=== PATIENT | male | born 1980 | race Caucasian/White ===

== ENCOUNTER 2017-07-02 07:10 | Emergency (ER) | payer OTHER, SELFPAY ==
--- NOTE | 2017-07-02 07:49 | RAD ---
THREE VIEWS OF THE LEFT ANKLE: INDICATION: Left ankle pain with walking, twisted while doing yardwork. COMPARISON: None. FINDINGS: There is prominent enthesopathic change off the plantar calcaneus as well as the anterior superior as pect of the talar head. There are mild degenerative changes involving the left ankle joint without e vidence of acute fracture. There is soft tissue swelling surrounding the left ankle. IMPRESSION: 1. No acute osseous abnormality. 2. Chronic changes as above. POS: MARE
[2017-07-02] MEDS ORDERED: Ibuprofen 800 MG TAB ONE (07:56)
--- NOTE | 2017-07-02 08:03 | RAD ---
LEFT FOOT 3 VIEWS: Date: 07/02/17 HISTORY: 36-year-old male with history of left ankle pain with walking following a twisting injury. FINDINGS: There are degenerative changes involving the left foot, without acute fracture or dislocation. IMPRESSION: Degenerative changes without fracture or dislocation. POS: MARE
== END 2017-07-02 08:00 | disposition home or self-care (01) ==
LOC: NAV ERS 07:10
DX: S93.402A Sprain of unspecified ligament of left ankle, initial encounter (principal); W17.89XA Other fall from one level to another, initial encounter

== ENCOUNTER 2017-12-14 09:28 | Emergency (ER) | payer SELFPAY ==
[2017-12-14] MEDS ORDERED: methylPREDNISolone Acetate 40 mg/ml Vial ONE (10:15)
== END 2017-12-14 10:38 | disposition home or self-care (01) ==
LOC: NAV ERS 09:28
DX: L25.9 Unspecified contact dermatitis, unspecified cause (principal); Z87.891 Personal history of nicotine dependence; Z79.899 Other long term (current) drug therapy
CPT/HCPCS: 99282; J1030

== ENCOUNTER 2018-05-22 06:07 | Emergency (ER) | payer BC, SELFPAY | END 2018-05-22 06:45 | disposition home or self-care (01) | LOC: NAV ERS 06:07 | DX: M54.32 Sciatica, left side (principal); Z87.891 Personal history of nicotine dependence | CPT/HCPCS: 99281 ==

== ENCOUNTER 2020-06-02 08:46 | Emergency (ER) | payer BC, OTHER ==
[2020-06-02] MEDS ORDERED: Ibuprofen 800 MG TAB ONE (09:26)
== END 2020-06-02 09:40 | disposition home or self-care (01) ==
LOC: NAV ERS 08:46
DX: S63.617A Unspecified sprain of left little finger, initial encounter (principal); S63.502A Unspecified sprain of left wrist, initial encounter; F17.210 Nicotine dependence, cigarettes, uncomplicated; W22.8XXA Striking against or struck by other objects, initial encounter